=== PATIENT | female | born 1985 | race Caucasian/White ===

== ENCOUNTER 2016-10-02 16:43 | Emergency (ER) | payer SELFPAY ==
[~2016-10-02] VITALS: Ht 165.1 cm; Wt 78.9 kg
[2016-10-02 17:02] VITALS: BP 90/70
== END 2016-10-02 18:16 | disposition left against medical advice (07) ==
LOC: ED 16:43
DX: Z53.21 Procedure and treatment not carried out due to patient leaving prior to being seen by health care provider (principal)

== ENCOUNTER 2018-04-26 04:16 | Emergency (ER) | payer MEDICAID ==
[~2018-04-26] VITALS: Ht 162.6 cm; Wt 84.9 kg
[2018-04-26 04:23] VITALS: Ht 162.6 cm; Wt 84.9 kg
[2018-04-26 05:47] VITALS: BP 1247/78
== END 2018-04-26 05:47 | disposition home or self-care (01) ==
LOC: ED 04:16
DX: J02.9 Acute pharyngitis, unspecified (principal)
CPT/HCPCS: J1100